=== PATIENT | male | born 1975 | race Caucasian/White ===

== ENCOUNTER 2024-04-24 22:33 | Emergency (ER) | payer BC ==
[~2024-04-24] VITALS: Ht 177.8 cm; Wt 113.0 kg
[2024-04-24 23:19] LABS: BASO # 0.1 10^3/uL (0.0-0.2); BASO % 0.4 % (0.0-1.0); HEMATOCRIT 43.4 % (42.0-52.0); HEMOGLOBIN 14.8 g/dl (13.5-17.5); LYMPH # 1.4 10^3/uL (1.5-5.0); LYMPH % 5.8 % (24.0-44.0); MEAN CORPUSCULAR HEMOGLOBIN 33.1 pg (27.0-33.0); MEAN CORPUSCULAR HGB CONC 34.1 g/dl (32.0-36.5); MEAN CORPUSCULAR VOLUME 97.1 fl (80.0-96.0); MONO # 1.7 10^3/uL (0.0-0.8); MONO % 6.7 % (2.0-8.0); NEUTROPHILS # 21.3 10^3/uL (1.5-8.5); NEUTROPHILS % 86.1 % (36.0-66.0); PLATELET COUNT, AUTOMATED 473 10^3/uL (150-450); RED BLOOD COUNT 4.47 10^6/uL (4.30-6.10); WHITE BLOOD COUNT 24.7 10^3/uL (4.0-10.0)
[2024-04-24] MEDS ORDERED: NS (Normal Saline) 0.9% 1,000 ML IV SCH (23:35)
[2024-04-24 23:41] LABS: ETHYL ALCOHOL (ETHANOL) < 0.003 % (0.000-0.010)
[2024-04-24 23:48] LABS: ALBUMIN 2.7 G/DL (3.2-5.2); ALKALINE PHOSPHATASE 86 U/L (40-129); ALT/SGPT 40 U/L (7.0-40); AST/SGOT 91 U/L (<34); BILIRUBIN,DIRECT 0.7 MG/DL (<0.4); BILIRUBIN,TOTAL 1.7 MG/DL (0.3-1.2); BLOOD UREA NITROGEN 29 MG/DL (9-23); CALCIUM LEVEL 9.3 MG/DL (8.5-10.1); CARBON DIOXIDE LEVEL 23 MMOL/L (20-31); CHLORIDE LEVEL 101 MMOL/L (98-107); CREATININE FOR GFR 0.91 MG/DL (0.70-1.30); GLOMERULAR FILTRATION RATE > 60.0 (>56); GLUCOSE, FASTING 140 MG/DL (60-100); POTASSIUM SERUM 4.8 MMOL/L (3.5-5.1); SODIUM LEVEL 140 MMOL/L (136-145); THYROID STIMULATING HORMONE 2.221 uIU/ML (0.55-4.78); TOTAL PROTEIN 7.2 G/DL (5.7-8.2)
[2024-04-24] MEDS: ACETAMINOPHEN *IV* 1,000 MG in IV 1 EA IV ONE (23:48)
[2024-04-24] MEDS: NS (Normal Saline) 0.9% 1,000 ML IV ONE (23:48)
[2024-04-25 00:15] LABS: KETONE, URINE AUTO RFX TRACE mg/dL (NEGATIVE); LEUKOCYTE ESTERASE UR AUTO RFX NEGATIVE (NEGATIVE); MUCUS, URINE RFX LARGE (NEGATIVE); NITRITE, URINE AUTO RFX NEGATIVE (NEGATIVE); RBC, URINE AUTO RFX 1 /HPF (0-3); SQUAM EPITHELIAL CELL UR AURFX 1 /HPF (0-6); WBC, URINE AUTO RFX 1 /HPF (0-3)
[2024-04-25 00:24] LABS: ERYTHROCYTE SEDIMENTATION RATE > 130 mm/hr (0-20)
[2024-04-25 00:34] LABS: C REACTIVE PROTEIN QUANTITATIV 14.79 MG/DL (<1.0)
[2024-04-25 00:49] LABS: CPK CREATINE PHOSPHOKINASE 246 U/L (46-171)
[2024-04-25] MEDS: LORazepam 2 MG/ML 1ML VIAL IV STA (01:03)
[2024-04-25] MEDS ORDERED: ISOVUE-370 76% 100ML VIAL As Ordered ONE (01:14)
[2024-04-25] MEDS ORDERED: VANCOMYCIN HCL 1,000 MG in IV FLUID PLACE HOLDER 1 EA IV ONE (01:40)
[2024-04-25] MEDS: PIPERACILLIN/TAZOBACTAM SOD 4.5 GM in DEXTROSE 5% (D5W) ADV/MINI-BAG 50 ML IV ONE (01:52)
[2024-04-25] MEDS: VANCOMYCIN HCL 1,000 MG, VIAL MATE ADAPTER 1 EACH in NS 250 ML IV ONE (02:59)
[2024-04-25 03:30] VITALS: BP 125/74; TEMP 99.6; O2SAT 92
== END 2024-04-25 03:46 | disposition short-term general hospital (02) ==
LOC: M ED 22:33
DX: I63.9 Cerebral infarction, unspecified (principal); A41.9 Sepsis, unspecified organism; L03.113 Cellulitis of right upper limb; L03.114 Cellulitis of left upper limb; R23.3 Spontaneous ecchymoses; R16.1 Splenomegaly, not elsewhere classified; I10 Essential (primary) hypertension; F10.10 Alcohol abuse, uncomplicated; Z88.2 Allergy status to sulfonamides
CPT/HCPCS: 70450; 70496; 70498; 71045; 71260; 73080; 73130; 80048; 80076; 81001; 82077; 82140; 82550; 83605; 84443; 85025; 85652; 86140; 87040; 87486; 87581; 87633; 87798; 93005; 93041; 94760; 96365; 96366; 96375; 99285; J0131; J2060; J2543; J3370; Q9967